=== PATIENT | male | born 1990 | race Caucasian/White ===

== ENCOUNTER 2018-03-18 01:38 | Emergency (ER) | payer OTHER ==
[2018-03-18] MEDS ORDERED: Diphtheria,Pertussis(Acell),Tetanus Vaccine 0.5 ML Syringe IM ONE (01:39)
[2018-03-18] MEDS ORDERED: Sodium Chloride 0.9% 1,000 ML IV ONE (01:39)
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
[2018-03-18 02:30] LABS: CHLORIDE,CL 104 mmol/L (98-107); SODIUM,NA 142 mmol/L (136-148)
[2018-03-18] MEDS ORDERED: Iopamidol 755 MG/ML 500 ML Multipack Bottle IVPUSH STA (02:34)
[2018-03-18] MEDS ORDERED: Sodium Chloride 0.9% 1,000 ML IV SCH ×3 (02:45→03:00)
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
[2018-03-18] MEDS ORDERED: cefTRIAXone 1 GM in Premix Bag 1 BAG IV ONE (03:52)
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
[2018-03-18] MEDS ORDERED: NS + KCl 20mEq/L 1,000 ML IV SCH (05:30)
== END 2018-03-18 05:50 ==
LOC: MW.ED 01:38
DX: S12.500A Unspecified displaced fracture of sixth cervical vertebra, initial encounter for closed fracture (principal); S01.81XA Laceration without foreign body of other part of head, initial encounter; F10.929 Alcohol use, unspecified with intoxication, unspecified; E87.6 Hypokalemia; Y90.7 Blood alcohol level of 200-239 mg/100 ml; V48.6XXA Car passenger injured in noncollision transport accident in traffic accident, initial encounter
CPT/HCPCS: 12013; 36415; 70450; 71045; 71260; 72125; 72170; 74177; 80053; 80305; 81001; 82550; 84484; 85025; 85610; 86850; 86900; 86901; 90471; 90715; 93005; 96360; 96361; 96365; 99285; G0390; G0480; J0696; J7040; Q9967